=== PATIENT | male | born 2000 ===

== ENCOUNTER 2020-03-17 13:11 | Emergency (ER) | payer OTHER ==
[~2020-03-17 13:11] MED LIST: ETODOLAC500 MG PO; FLEXERIL5 MG PO; HYDROCODON-ACE1 EAC4 PO; IBUPROFEN800 MG PO; LEXAPRO20 MG PO; MEDROL 4MG DOSEP4 MG PO; NORCO 5-325 TA1 EACH PO; PERCOCET 5-3251 EACH PO; PREDNISONE 20MG20 MG PO; ROBAXIN750 MG PO
[2020-03-17] MEDS ORDERED: ETODOLAC500 MG PO (14:26)
== END 2020-03-17 14:46 | disposition home or self-care (01) ==
LOC: FER 13:11
DX: S49.91XA Unspecified injury of right shoulder and upper arm, initial encounter (principal); F32.9 Major depressive disorder, single episode, unspecified; F90.9 Attention-deficit hyperactivity disorder, unspecified type; Z79.899 Other long term (current) drug therapy; W11.XXXA Fall on and from ladder, initial encounter; Y92.009 Unspecified place in unspecified non-institutional (private) residence as the place of occurrence of the external cause
CPT/HCPCS: 73030; J1885

== ENCOUNTER 2020-08-02 15:20 | Emergency (ER) | payer OTHER ==
[2020-08-02] MEDS ORDERED: MEDROL 4MG DOSEP4 MG PO (15:42)
[2020-08-02] MEDS ORDERED: CYCLOBENZAPRINE10 MG PO (15:42)
== END 2020-08-02 16:01 | disposition home or self-care (01) ==
LOC: FER 15:20
DX: S46.911A Strain of unspecified muscle, fascia and tendon at shoulder and upper arm level, right arm, initial encounter (principal); Z86.79 Personal history of other diseases of the circulatory system; X58.XXXA Exposure to other specified factors, initial encounter; Y92.009 Unspecified place in unspecified non-institutional (private) residence as the place of occurrence of the external cause
CPT/HCPCS: 99283